=== PATIENT | male | born 1945 | race Caucasian/White ===

== ENCOUNTER → 2016-12-09 | Outpatient (CLI) | payer BC, OTHER | END | disposition home or self-care (01) | LOC: GMAM 10:26 | PROVIDERS: ATTEND Family Medicine | DX: R97.20 Elevated prostate specific antigen [PSA] (principal) ==

== ENCOUNTER → 2017-06-20 | Outpatient (CLI) | payer MEDICARE, OTHER | LOC: GMAM 11:46 | PROVIDERS: ATTEND Family Medicine | DX: R31.29 Other microscopic hematuria (principal); R97.20 Elevated prostate specific antigen [PSA] ==

== ENCOUNTER → 2018-07-05 | Outpatient (CLI) | payer BC, MEDICARE | LOC: GMAM 11:04 | PROVIDERS: ATTEND Family Medicine | DX: N40.0 Benign prostatic hyperplasia without lower urinary tract symptoms (principal) ==

== ENCOUNTER → 2018-10-31 | Outpatient (CLI) | payer BC, MEDICARE ==
--- NOTE | 2018-11-01 09:36 | MRI ---
EXAM DESCRIPTION: Lumbar Spine w/o Contrast CLINICAL HISTORY: RADICULOPATHY COMPARISON: Correlation is made with x-ray lumbar spine October 24, 2018 TECHNIQUE: MRI of the lumbar spine is performed according to our usual protocol with axial and sagittal multi sequence imaging. FINDINGS: Sagittal T2 images reveal decreased signal intensity consistent with desiccation of the intervertebral discs at levels L2-3 through L5-S1. Mild posterior annular bulges are present at these levels. No prevertebral mass or aneurysm. Lower cord and conus appear normal. Tip of the conus is behind L2. Sagittal T1 images reveal benign marrow signal characteristics. Normal T1 signal intensity and appearance of the lower cord and conus. Sagittal STIR images are negative for marrow edema within the vertebral bodies or posterior elements. No paraspinous fluid collection or cystic lesion. Axial T1 and T2-weighted images were obtained to evaluate the disc levels. L1-2: No posterior annular bulge or herniation. No spinal stenosis or neural foraminal narrowing. Mild facet hypertrophy. L2-3: Mild diffuse posterior annular bulge without focal herniation. No significant spinal stenosis or neural foraminal narrowing. Facets appear mildly hypertrophic. There is moderate narrowing of subarticular recesses bilaterally without nerve root compression. L3-4: Moderate diffuse posterior annular bulge without significant spinal stenosis. There is mild bilateral neural foraminal narrowing. Moderate facet hypertrophic changes with thickened ligamentum flavum cause moderate left and moderately severe right subarticular recess narrowing crowding the descending L4 nerve roots. There is increased fluid in the facet joints. L4-5: Moderate diffuse posterior annular bulge without focal herniation. No spinal stenosis. There is mild bilateral neural foraminal narrowing. Facet hypertrophy is seen with increased fluid in the facet joints and thickening of the ligamentum flavum. There is moderate narrowing of right more than left subarticular recesses crowding the descending L5 nerve roots. L5-S1: Moderate diffuse posterior annular bulge without spinal stenosis. There is moderate bilateral neural foraminal narrowing crowding the exiting L5 nerve roots. Posterior annular tear is present without associated extruded fragment. This measures 1.2 cm in mediolateral width. There is moderately severe narrowing of subarticular recesses left more than right impinging upon the descending S1 nerve roots. Marked facet hypertrophic spurring on the left with bilateral left more than right ligamentum flavum thickening. Upper sacrum appears intact. No retroperitoneal mass or aneurysm. IMPRESSION: Mild to moderate posterior annular bulges at L2-3 through L5-S1 without spinal stenosis or focal disc herniation. Electronically signed by: Ryan Beyer MD 11/01/2018 9:34 AM CDT
== END ==
LOC: MRI 08:52
PROVIDERS: ATTEND Family Medicine
DX: M51.16 Intervertebral disc disorders with radiculopathy, lumbar region (principal)

== ENCOUNTER → 2019-01-11 | Outpatient (CLI) | payer BC, MEDICARE | LOC: GMAM 10:31 | PROVIDERS: ATTEND Family Medicine | DX: R97.20 Elevated prostate specific antigen [PSA] (principal); E78.5 Hyperlipidemia, unspecified; Z79.899 Other long term (current) drug therapy ==

== ENCOUNTER → 2019-02-27 | Outpatient (CLI) | payer BC, MEDICARE | LOC: GMAM 14:09 | PROVIDERS: ATTEND Family Medicine | DX: R97.20 Elevated prostate specific antigen [PSA] (principal) ==